=== PATIENT | male | born 1970 | race Hispanic/Latino ===

== ENCOUNTER 2016-11-09 22:32 | Observation (INO) | payer OTHER ==
[~2016-11-09] VITALS: Ht 172.7 cm; Wt 103.9 kg
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
--- NOTE | 2016-11-09 23:42 | NUR ---
KRISTAL Ball AT BEDSIDE TO ANKIT PT
--- NOTE | 2016-11-10 00:09 | NUR ---
EKG BEING DONE
[2016-11-10 00:11] LABS: ABSOLUTE BASOPHIL COUNT 0 /CUMM (0.0-0.2); ABSOLUTE EOSINOPHIL COUNT 0.2 /CUMM (0.0-0.7); ABSOLUTE LYMPH COUNT 2.1 /CUMM (1.2-3.4); ABSOLUTE MONOCYTE COUNT 0.6 /CUMM (0.10-0.60); GRANULOCYTE % 57.4 % (42.2-75.2); MEAN CORPUSCULAR HGB 30.4 PG (27.0-31.0); MEAN CORPUSCULAR HGB CONC 34.5 G/DL (33.0-37.0)
[2016-11-10 00:14] LABS: BASOPHIL % 0.6 % (0.0-2.0); EOSINOPHIL % 2.7 % (0-5); HEMATOCRIT 41.4 % (42-52); MEAN CORPUSCULAR VOLUME 88.1 FL (80.0-94.0); PLATELET COUNT 189 /CUMM (130-400); WHITE BLOOD CELL COUNT 6.9 /CUMM (4.8-10.8)
--- NOTE | 2016-11-10 00:15 | NUR ---
EKG DONE AND SHOWN TO DR. QUINN, BLOODWORK DRAWN AND SENT OFF TO THE LAB; PT OVER TO MARY KAY.
--- NOTE | 2016-11-10 00:21 | NUR ---
PT BACK FROM X-RAY, PLACED ON MONITOR.
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
--- NOTE | 2016-11-10 01:35 | NUR ---
HOUSE STAFF AT BEDSIDE TO EVAL PT. PT REQUESTS TO STAY IN SWEAT PANTS AND T-SHIRT.
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
[2016-11-10] MEDS ORDERED: ATENOLOL50 M1 PO (02:46)
[2016-11-10] MEDS ORDERED: COZAAR25 M1 PO (02:46)
[2016-11-10] MEDS ORDERED: CLOPIDOGREL75 M1 PO (02:46)
[2016-11-10] MEDS ORDERED: LOVASTATIN20 M1 PO (02:46)
[2016-11-10] MEDS ORDERED: HYDROCHLOROTHIA25 M1 PO (02:47)
[2016-11-10] MEDS ORDERED: ASPIRIN EC325 M2 PO (02:48)
[2016-11-10] MEDS ORDERED: MINITRAN1 EAC2 TP (02:48)
--- NOTE | 2016-11-10 03:58 | NUR ---
PT CONTINUES TO SLEEP.
--- NOTE | 2016-11-10 06:06 | NUR ---
VSS. 0600 BLOODS DRAWN AND SENT TO LAB. PT IS PAIN FREE
[2016-11-10 06:14] LABS: ABSOLUTE BASOPHIL COUNT 0 /CUMM (0.0-0.2); ABSOLUTE EOSINOPHIL COUNT 0.2 /CUMM (0.0-0.7); ABSOLUTE GRANULOCYTE CT 2.5 /CUMM (1.4-6.5); ABSOLUTE LYMPH COUNT 1.5 /CUMM (1.2-3.4); ABSOLUTE MONOCYTE COUNT 0.5 /CUMM (0.10-0.60); BASOPHIL % 0.7 % (0.0-2.0); EOSINOPHIL % 3.3 % (0-5); GRANULOCYTE % 53.5 % (42.2-75.2); HEMATOCRIT 39.5 % (42-52); MEAN CORPUSCULAR HGB 30.1 PG (27.0-31.0); MEAN CORPUSCULAR HGB CONC 33.9 G/DL (33.0-37.0); MEAN PLATELET VOLUME 8.7 FL (7.4-10.4); PLATELET COUNT 167 /CUMM (130-400); RBC DISTRIBUTION WIDTH 13.4 % (11.5-14.5); RED BLOOD CELL CT 4.44 /CUMM (4.70-6.10); WHITE BLOOD CELL COUNT 4.7 /CUMM (4.8-10.8)
[2016-11-10 08:22] VITALS: BP 137/83
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
--- NOTE | 2016-11-10 08:26 | NUR ---
DR. LIU AT BEDSIDE FOR EVAL
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
[2016-11-10 08:58] VITALS: BP 146/90
--- NOTE | 2016-11-10 09:16 | Patient Discharge Instructions ---
Discharge Instructions General Discharge Information You were seen/treated for: Chest pain Special Instructions: Follow up with PCP and senior coldfusion developer in 1 week. Follow up for outpatient stress test. Follow up for echocardiogram Follow up with neurologist if continues to have abnormal sensation of the arm. Diet Continue normal diet: Yes Activity Full Activity/No Limits: Yes Acute Coronary Syndrome Inclusion Criteria At DC or during hospital stay patient has or had the following: ACS DIAGNOSIS No Discharge Core Measures Meds if any: Prescribed or Continued at Discharge Meds if any: NOT Prescribed or Continued at Discharge Congestive Heart Failure Inclusion Criteria At DC or during hospital stay patient has or had the following: CHF DIAGNOSIS No Discharge Core Measures Meds if any: Prescribed or Continued at Discharge Meds if any: NOT Prescribed or Continued at Discharge Cerebrovascular accident Inclusion Criteria At DC or during hospital stay patient has or had the following: CVA/TIA Diagnosis No Discharge Core Measures Meds if any: Prescribed or Continued at Discharge Meds if any: NOT Prescribed or Continued at Discharge Venous thromboembolism Inclusion Criteria VTE Diagnosis No VTE Type NONE VTE Confirmed by (Test) NONE Discharge Core Measures - Per Current guidelines, there needs to be overlap - treatment for the first 5 days of Warfarin therapy. - If discharged on Warfarin prior to 5 days of - overlap therapy, the patient will need to be - assessed for post discharge needs including - *Post discharge parental anticoagulation - *Warfarin and/or parental anticoagulation education - *Follow up date to check INR post discharge At least 5 days overlap therapy as Inpatient No Meds if any: Prescribed or Continued at Discharge Note: Overlap Therapy is Warfarin and Anticoagulant Meds if any: NOT Prescribed or Continued at Discharge
== END 2016-11-10 09:40 ==
LOC: ERH 22:32 → ERHI 11-10 01:00
PROVIDERS: Internal Medicine; Physician Assistant; ADMIT Internal Medicine Interventional Cardiology
DX: R07.9 Chest pain, unspecified (principal); Z86.718 Personal history of other venous thrombosis and embolism; I10 Essential (primary) hypertension; K21.9 Gastro-esophageal reflux disease without esophagitis
CPT/HCPCS: 82436; 93005; 93010; J1650